=== PATIENT | female | born 1940 | race Two or more races ===

== ENCOUNTER 2016-11-21 20:48 | Emergency (ER) | payer MEDICAID ==
--- NOTE | 2016-11-21 21:54 | ED ---
cookie Macdonald Timothy, scribed for Edenilson Landers MD on 11/21/16 at 2130 . Abdominal Pain/Female - HPI Summary HPI Summary: Tamela Bullard is a 76 yo female presenting to [facility] with 8/10 RUQ abd and right leg pain since 1900 tonight. 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 She denies any Hx of previous Sx. She has been non-ambulatory for the past 18 months. She has self-medicated with hydrocodone 1 hour [facility]. Her MHx also includes breast CA, ovarian CA, DM, hernia, osteoperosis. - History of Current Complaint Chief Complaint: EDAbdPain Stated Complaint: RIGHT SIDE PAIN Time Seen by Provider: 11/21/16 21:25 Hx Obtained From: Patient ?: No Onset/Duration: Sudden Onset, Lasting Hours, Still Present Timing: Constant Severity Initially: Moderate Severity Currently: Moderate Pain Intensity: 8 Pain Scale Used: 0-10 Numeric Location: Discrete At: RUQ Radiates: Yes Radiates to: Other - right leg Alleviating Factor(s): Nothing Allergies/Adverse Reactions: Allergies Allergy/AdvReac Type Severity Reaction Status Date / Time No Known Allergies Allergy Verified 11/21/16 21:00 PMH/Surg Hx/FS Hx/Imm Hx Endocrine/Hematology History: Reports: Hx Diabetes Musculoskeletal History: Reports: Other Musculoskeletal History - osteoperosis - Cancer History Cancer Type, Location and Year: Breast CA, ovarian CA. Infectious Disease History: No Infectious Disease History: Denies: Traveled Outside the [place] in Last 30 Days - Family History Known Family History: Positive: Cardiac Disease Negative: Hypertension, Diabetes - Social History Lives: With Family Hx Substance Use: No Substance Use Type: Reports: None Hx Tobacco Use: No - Additional Comments History Additional Comments: hernia Review of Systems Constitutional: Negative Eyes: Negative ENT: Negative Cardiovascular: Negative Respiratory: Negative Positive: Abdominal Pain - RUQ Genitourinary: Negative Positive: Other - Right leg pain Skin: Negative Neurological: Negative Psychological: Normal All Other Systems Reviewed And Are Negative: Yes Physical Exam Triage Information Reviewed: Yes Vital Signs On Initial Exam: Initial Vitals Temp Pulse Resp BP Pulse Ox 97.6 F 102 18 165/85 100 11/21/16 20:56 11/21/16 20:56 11/21/16 20:56 11/21/16 20:56 11/21/16 20:56 Vital Signs Reviewed: Yes Appearance: Positive: No Pain Distress, Thin Skin: Positive: Warm Head/Face: Positive: Normal Head/Face Inspection Eyes: Positive: MICHAEL ENT: Positive: Hearing grossly normal Neck: Positive: Supple Respiratory/Lung Sounds: Positive: Breath Sounds Present Cardiovascular: Positive: RRR Abdomen Description: Positive: Nontender, Soft Bowel Sounds: Positive: Present Musculoskeletal: Positive: Other - mild swelling rt thigh region Neurological: Positive: Alert, Oriented to Person Place, Time Psychiatric: Positive: Affect/Mood Appropriate Diagnostics - Vital Signs Vital Signs Temp Pulse Resp BP Pulse Ox 11/21/16 20:56 97.6 F 102 18 165/85 100 - Laboratory Result Diagrams: 11/21/16 23:45 11/21/16 23:45 Lab Statement: Any lab studies that have been ordered have been reviewed, and results considered in the medical decision making process. - CT A/P CT Interpretation: Positive (See Comments) - Lung base nodules up to 2.2 cm in right lower lobe, consider PET/CT correlation. Flattened IVC, possibly due to dehydration. No bowel obstruction, colitis, diverticulitis, free fluid or free air. Appendix not seen. No pericecal inflammation to suggest acute apendicitis. Unremarkable pancreas and kidneys. Ventral hernia repair with small recurrent/ residual mid-abdominal hernia containing fat. Diastasis recti lower abd wall. Cholecystectomy. Hysterectomy. Gastroesophageal reflux. Chronic fractures right pelvis and bilateral sacral alae. CT Interpretation Completed By: Radiologist - Ultrasound No standard instances Ultrasound Interpretation: No Acute Changes - IMPRESSION: NO RIGHT LOWER EXTREMITY DEEP VEIN THROMBOSIS Ultrasound Interpretation Completed By: Radiologist - Venous Doppler RLE Re-Evaluation - Re-Evaluation First Eval Re-Evaluation Time: 01:12 Change: Improved Comment: Discussed Pt condition and current course of Tx, as well as CT results. Abdominal Pain Fem Course/Dx - Course Course Of Treatment: Tamela Bullard is a 76 yo female presenting to [facility] with RUQ Abd pain radiating down her right leg. After review of CT, venous doppler, and lab work, she will be discharged home with leg swelling and abdominal pain, with instructions to follow up with her primary care physician. - Diagnoses Provider Diagnoses: Leg swelling, Abdominal pain Discharge - Discharge Plan Condition: Stable Disposition: HOME Patient Education Materials: Leg Edema (ED), Acute Abdominal Pain (ED), Abdominal Pain (ED) Referrals: Non Staff,Doctor [Primary Care Provider] - 2 Days Additional Instructions: Please follow up with your primary care physician within 2 days regarding your visit to the emergency department. Return to the emergency department with any new or recurring symptoms. The documentation as recorded by the cookie watters Timothy accurately reflects the service I personally performed and the decisions made by me, Edenilson Landers MD.
--- NOTE | 2016-11-21 22:10 | RAD ---
HISTORY: Swelling of right lower extremity COMPARISONS: None relevant TECHNIQUE: Multiple transverse and longitudinal ultrasound images were obtained of the right lower extremity from the level of the common femoral vein inferiorly through to the infrapopliteal veins using grayscale, color Doppler, and spectral Doppler imaging with and without compression and with augmentation. Comparison images were obtained of the contralateral common femoral vein. FINDINGS: VEINS: The venous system of the right lower extremity is compressible throughout its course, with normal flow on color Doppler imaging and normal response to augmentation on spectral Doppler imaging. SOFT TISSUES: Unremarkable. OTHER FINDINGS: None. IMPRESSION: NO RIGHT LOWER EXTREMITY DEEP VEIN THROMBOSIS
[2016-11-22 00:15] LABS: Albumin 3.2 g/dL (3.2-5.2); BUN/Creatinine Ratio 31.1 (8-20); C Reactive Protein 3.23 mg/L (< 5.00); EGFR African American 175.2 (>60); EGFR Non-African American 136.2 (>60); Magnesium 1.7 mg/dL (1.9-2.7); Potassium 3.8 mmol/L (3.5-5.0); Total Bilirubin 0.3 mg/dL (0.2-1.0); Total Protein 6.2 g/dL (6.4-8.9)
[2016-11-22 00:17] LABS: Hematocrit 34 % (35-47); Hemoglobin 11.2 g/dl (12.0-16.0); Mean Corpuscular HGB Conc 33 g/dl (31-36); Mean Corpuscular Hemoglobin 29 pg (27-31); Mean Corpuscular Volume 87 fL (80-97); Mean Platelet Volume 7 um3 (7.4-10.4); Red Blood Count 3.88 10^6/ul (4.0-5.4); Red Cell Distribution Width 15 % (10.5-15); White Blood Count 15.8 10^3/ul (3.5-10.8)
[2016-11-22] MEDS ORDERED: Ondansetron ODT TAB* 4 MG PO ONE ×2 (00:53)
[2016-11-22 01:01] LABS: Urine Bacteria Absent (Absent); Urine Bilirubin 1+ (Negative); Urine Glucose Negative (Negative); Urine Nitrite Negative (Negative)
[2016-11-22] MEDS ORDERED: traMADol TAB* 50 MG PO ONE ×3 (01:29)
[2016-11-22 01:56] VITALS: BP 171/98
--- NOTE | 2016-11-22 07:45 | RAD ---
CLINICAL HISTORY: Right leg swelling COMPARISON: None TECHNIQUE: Multiple contiguous axial CT scans were obtained of the abdomen and pelvis, without intravenous contrast enhancement. Coronal and sagittal multiplanar reformations are submitted for review. Oral contrast was administered. FINDINGS: The study is limited by the lack of intravenous contrast. This limits evaluation of the solid organs and vasculature. LUNG BASES: There are multiple pulmonary parenchymal nodules measuring up to 2.2 cm in size LIVER: There is dystrophic calcification of the right lobe of liver. BILE DUCTS: There is no intrahepatic or extrahepatic biliary dilatation. GALLBLADDER: The gallbladder is not visualized. Surgical clips are noted in the gallbladder fossa. PANCREAS: The pancreas is normal, without mass or ductal dilatation. SPLEEN: Normal in size and appearance. UPPER GI TRACT: Evaluation of the gastrointestinal tract is limited by incomplete gastric distention. There is reflux of oral contrast into the esophagus. SMALL BOWEL AND MESENTERY: There is a ventral hernia containing small bowel. There is no obstruction. COLON: The colon is normal in contour, course, caliber. There is no pericolonic inflammatory change. ADRENALS: Normal bilaterally. KIDNEYS: The kidneys are normal in shape, size, contour, and axis. There is no hydronephrosis or nephrolithiasis. BLADDER: The bladder is smooth in contour. PELVIC ORGANS: The pelvic organs are not visualized. AORTA: There is calcific atherosclerotic disease of the abdominal aorta and its branches, without aneurysmal dilatation IVC: Unremarkable LYMPH NODES: There is no lymphadenopathy by size criteria. ABDOMINAL WALL: There is a broad-based ventral hernia of the lower abdomen containing loops of small bowel BONES AND SOFT TISSUES: There is osteopenia. Degenerative changes are noted of the spine. There are findings suggestive of chronic sacral insufficiency fractures. There is a chronic appearing fracture of the right pubic rami OTHER: None IMPRESSION: 1. MULTIPLE PULMONARY PARENCHYMAL NODULES MEASURING UP TO 2.2 CM IN SIZE, CONCERNING FOR METASTATIC DISEASE TO THE CHEST. RECOMMEND CONSIDERATION OF PET/CT AND/OR TISSUE SAMPLING. 2. VENTRAL HERNIA CONTAINING LOOPS OF SMALL BOWEL WITHOUT OBSTRUCTION. 3. ATHEROSCLEROSIS. 4. CHRONIC SACRAL INSUFFICIENCY FRACTURES
== END 2016-11-22 01:53 | disposition home or self-care (01) ==
LOC: MERGE 20:48 → ED 20:48
DX: R60.0 Localized edema (principal); R10.11 Right upper quadrant pain; M79.89 Other specified soft tissue disorders
CPT/HCPCS: 36415; 74176; 80053; 81003; 81015; 83735; 85025; 85610; 86140; 99282; A9270-GY